=== PATIENT | female | born 1970 ===

== ENCOUNTER 2019-05-08 07:00 | Inpatient (IN) | payer OTHER ==
[~2019-05-08] VITALS: Ht 160 cm; Wt 84.9 kg
[2019-06-08] VITALS (14 sets, daily range): BP systolic 112–140; BP diastolic 62–80
[2019-06-08] MEDS ORDERED: ceFAZolin sod 1 GM in NS 55 ML IVPB ONE (07:00)
[2019-06-08] MEDS ORDERED: Dexamethasone 20mg/5ml IVP ONE (07:00)
[2019-06-08] MEDS ORDERED: fentaNYL 100 mcg/2 mL IV ONE ×2 (08:07→09:55)
[2019-06-08] MEDS ORDERED: Gelfoam Size TOPIC ONE (08:18)
[2019-06-08] MEDS ORDERED: Ropivacaine 5mg/ml Vial 30ml INJ ONE (08:18)
[2019-06-08] MEDS ORDERED: Thrombin 5000 units TOPIC ONE (08:18)
[2019-06-08] MEDS ORDERED: Bacitracin 50000 Units Vial ONE (08:18)
[2019-06-08] MEDS ORDERED: Heparin 5000 units/ml inj ONE (08:18)
[2019-06-08] MEDS ORDERED: AMLODIPINE BESYL5 MG ORAL (08:22)
[2019-06-08] MEDS ORDERED: LOSARTAN-HCTZ1 EAC2 ORAL (08:22)
--- NOTE | 2019-06-08 08:30 | NUR ---
IV LR WAS STARTED BY IFTIKHAR RODRIGUEZ RN. NO S/S OF INFILTRATION.
--- NOTE | 2019-06-08 08:35 | Anethesia Preoperative Eval ---
Anesthesia Pre-op PMH/ROS General Date of Evaluation: Jun 08, 2019 Time of Evaluation: 08:56 Anesthesiologist: Xu ASA Score: ASA 2 Mallampati Score Class I : Soft palate, uvula, fauces, pillars visible Class II: Soft palate, uvula, fauces visible Class III: Soft palate, base of uvula visible Class IV: Only hard plate visible Mallampati Classification: Class II Surgeon: Joey Diagnosis: Back Pain Surgical Procedure: ALIF L4-5, L5-S1 Anesthesia History: none Family History: no anesthesia problems Allergies: Coded Allergies: No Known Allergies (Unverified , 06/05/19) Medications: see eMAR Patient NPO?: Yes Past Medical History Cardiovascular: Reports: HTN Other: obesity - BMI 33 PSxH Narrative: TL, Cholecystectomy Anesthesia Pre-op Phys. Exam Physician Exam Last Vital Signs Date Time Temp Pulse Resp B/P (MAP) Pulse Ox O2 Delivery O2 Flow Rate FiO2 06/08/19 08:17 Room Air Constitutional: NAD Neurologic: CN 2-12 intact Cardiovascular: RRR Respiratory: CTA Gastrointestinal: S/NT/ND Airway Exam Mallampati Score: Class II MO: full ROM: full Teeth: intact Anesthesia Pre-op A/P Labs Urine Test Test 06/08/19 08:00 Urine HCG, Qualitative Pending Risk Assessment & Plan Assessment: ASA 2 Plan: GA, SED, GlideScope Go Status Change Before Surgery: No Pre-Antibiotics Dru Grams Ancef IV Given Within 1 Hr of Incision: Yes Time Given: 09:16 Gomez Barrera MD Jun 08, 2019 08:35
--- NOTE | 2019-06-08 08:36 | Immediate Post-Op Evaluation ---
Immediate Post-Op Evalulation Immediate Post-Op Evalulation Procedure: ALIF L4-5 Date of Evaluation: Jun 08, 2019 Time of Evaluation: 11:48 IV Fluids: 1000 LR Blood Products: 0 Estimated Blood Loss: 100 Urinary Output: 200 Blood Pressure Systolic: 135 Blood Pressure Diastolic: 79 Pulse Rate: 92 Respiratory Rate: 16 O2 Sat by Pulse Oximetry: 99 Temperature (Fahrenheit): 97 Pain Score (1-10): 3 Nausea: No Vomiting: No Complications 0 Patient Status: awake, reacts, patent, extubated, none Hydration Status: adequate Dru Grams Ancef IV Given Within 1 Hr of Incision: Yes Time Given: 09:16 Gomez Barrera MD Jun 08, 2019 08:36
[2019-06-08] MEDS ORDERED: Neostigmine 1mg/ml 10ml Inj ONE (09:00)
[2019-06-08] MEDS ORDERED: Zemuron 50mg/5ml Inj IV ONE (09:00)
[2019-06-08] MEDS ORDERED: LR 1000ml ONE (09:00)
[2019-06-08] MEDS ORDERED: Propofol 1,000mg/ 100ml btl IV ONE (09:00)
--- NOTE | 2019-06-08 09:25 | Pre-Procedure Note/Attestation ---
Pre-Procedure Note/Attestation Complete Prior to Procedure Planned Procedure: not applicable Procedure Narrative: ALIF L4-L5, L5-S1, possible laminotomy Indications for Procedure Pre-Operative Diagnosis: post trauma back pain, radiculopathy Attestation I attest that I discussed the nature of the procedure; its benefits; risks and complications; and alternatives (and the risks and benefits of such alternatives ), prior to the procedure, with the patient (or the patient's legal premium service representative). I attest that, if there was a reasonable possibility of needing a blood transfusion, the patient (or the patient's legal premium service representative) was given the [facility] standardized written summary, pursuant to the [place] Blood Safety Act ([place] Health and Safety Code # 1645, as amended). I attest that I re-evaluated the patient just prior to the surgery and that there has been no change in the patient's H&P, except as documented below: Ricky Reyes MD Jun 08, 2019 09:25
[2019-06-08] MEDS ORDERED: NS Irrig 1000ml IRRIG ONE (09:30)
[2019-06-08] MEDS ORDERED: Lidocaine 1% MPF 10mg/ml 5ml ONE (09:55)
[2019-06-08] MEDS ORDERED: Sodium Chloride 10ml vial INJ ONE (09:55)
[2019-06-08] MEDS ORDERED: Dexamethasone 4mg/ml vial ONE (09:55)
[2019-06-08] MEDS ORDERED: Lidocaine 1% Plain 30 ml INJ ONE ×2 (09:55→10:32)
[2019-06-08] MEDS ORDERED: Glycopyrrolate 0.2mg/ml 1ml Vial ONE (11:00)
--- NOTE | 2019-06-08 11:05 | Brief Operative Note ---
Immediate Post Operative Note Operative Note Pre-op Diagnosis: post trauma back pain, radiculopathy Procedure: ALIF anterior plate L4L5 xray SSEP/EMG mag Post-op Diagnosis: same as pre-op Findings: consistent w/pre-op dx studies Surgeon: Amy Gomez MD Additional Surgeons: Carl SOLIS Anesthesiologist: Holly SOLIS Anesthesia: general Specimen: yes Complications: none Condition: stable Fluids: anesthesia Estimated Blood Loss: volume Drains: none Implant(s) used?: Yes Ricky Reyes MD Jun 08, 2019 11:04
[2019-06-08] MEDS ORDERED: Naloxone 0.4mg/ml Inj IVP PRN (11:15)
--- NOTE | 2019-06-08 12:16 | Diagnostic Imaging Report ---
INDICATION: Pain, intraoperative TECHNIQUE: Intraoperative imaging Fluoroscopy time: 14.8 seconds Total dose: 0.72917 mGym2 Total number of images: 3 COMPARISON: None FINDINGS: Intraoperative imaging documents surgical tools projected anterior to what are presumably the L3-4 disc, L4-5 disc, and L5 vertebral body. Subsequent images demonstrate anterior fusion with placement of a disc spacer at L4-5, hardware appearing well aligned IMPRESSION: Intraoperative imaging, as described
[2019-06-08] MEDS ORDERED: Hydromorphone 0.5mg/0.5ml inj IVP PRN ×2 (12:18→22:00)
[2019-06-08] MEDS ORDERED: DiphenhydrAMINE 50mg/ml Inj ONE (12:22)
[2019-06-08] MEDS ORDERED: Hydromorphone 0.5mg/0.5ml inj ONE (12:22)
[2019-06-08] MEDS ORDERED: DiphenhydrAMINE 50mg/ml Inj IVP SCH ×2 (12:30)
[2019-06-08] MEDS ORDERED: Metoclopramide 10mg/2ml Inj IVP SCH (12:30)
--- NOTE | 2019-06-08 13:00 | NUR ---
NURSE NOTES: Received patient and report from GISELLE Caraballo. Pt is sleeping. She responds to name. Belongings taken by Ja. Pts vital signs on arrival are T: 98.7 BP: 126/65, HR: 77, RR: 20, O2: 99%. surgical dressing intact. Bed is in lowest position, side rails up X2, and call light is within reach. WIll continue to monitor.
[2019-06-08] MEDS: D5 1/2NS 1,000 ML IV SCH ×2 (13:36→21:59)
--- NOTE | 2019-06-08 14:07 | NUR ---
NURSE NOTES: Called and left a message for Dr. Pierre to call me back regarding pain medications. Will await call back.
[2019-06-08] MEDS: Hydromorphone 0.5mg/0.5ml inj IVP PRN ×2 (15:12→18:03)
[2019-06-08] MEDS: ceFAZolin sod 1 GM in D5W 55 ML IV SCH (18:03)
--- NOTE | 2019-06-08 19:00 | Operative Note - Dictated ---
DATE OF OPERATION: 06/08/2019 SURGEON: Ricky Reyes PhD; M.D. ADDITIONAL SURGEON: Dr. Henry, Vascular Surgery. ANESTHESIA: By Dr. Gomez Barrera, general with intubation. ESTIMATED BLOOD LOSS: 50 mL. COMPLICATIONS: None. POSTOPERATIVE CONDITION: Good/stable. PREOPERATIVE DIAGNOSES: Post trauma back pain with radiculopathy, herniated nucleus polyposis, clinical instability. POSTOPERATIVE DIAGNOSES: Post trauma back pain with radiculopathy, herniated nucleus polyposis, clinical instability. OPERATIVE PROCEDURES: L4-L5 diskectomy with removal of posterior disc fragments through anterior approach (no evidence of CSF leak, change in neuromonitoring, EMG, SSEP), interbody reconstruction and fusion, Aero-L prosthesis with placement of osteopromotive material within graft (SILVA-4 analog), anterior internal plate fixation, SSEP/EMG monitoring, intraoperative fluoroscopy interpreted by surgeon, and dissection magnification. DESCRIPTION OF PROCEDURE: The patient was brought to the operating room and in the supine position, general anesthesia with intubation was induced. IV antibiotics IV Decadron were administered 30 minutes prior to incision time. Anterior approach, Dr. Henry, Vascular Surgery, separately dictated. Please see separate report. Identification of midline and the correct level. A lateral plane was determined with a spinal needle placed into the disk space. Fluoroscopic imaging obtained/saved under sterile conditions. After confirmation, needle was removed. Annulotomy performed. Diskectomy to but not through the posterior longitudinal ligament. Midline asymmetric left rent noted with visualization of the dura under high-power magnification. No dural tears or leaks occurred anytime during the procedure. Contiguous disc fragment retrieved without sequelae. After appropriate trial, utilization with monitoring in AP and lateral fluoroscopic planes under sterile conditions, the appropriate interbody device was packed with osteopromotive material SILVA-4 under sterile conditions. Implant inserted under direct observation with fluoroscopic guidance. Fit midline excellent. Interdigitating internal fixation devices deployed into the graft 2 cephalad, 2 caudad under protocol. Locked into position. Implantation device removed. Wound irrigated with antibiotic-containing saline. Negative bleeding noted. Anterior internal plate fixation with the appropriate dimensioned plate with 25 mm titanium screws, two cephalad, two caudad into respectively. The L4 and L5 bodies undertaken and clamped into position. Fluoroscopic guidance undertaken with radiographs obtained and printed in the AP and lateral planes. Position is excellent. Inspection of the wound revealed no obvious excoriation or laceration of vital structures or bleeding. Wound irrigated with antibiotic-containing saline. Please see separate report of Dr. Henry for closure details. Ricky Reyes M.D. DR: LEX JOB#: [id number] CC:
--- NOTE | 2019-06-08 19:30 | NUR ---
NURSE NOTES: Receive a report from GISELLE Starkey. Round is done. Pt is awake and alert, orientation x4. Breathing is even and non labored. No acute distress noted. On O2 2L NC inhalation after surgery. Op site is clear without bleeding signs with gauze and teragerm. Op site pain is mild as 3/10. No chilling or febrile sensation. On NPO except ice chips and po medication. IV fluid hydration on right hand without infiltration. Has not urinated yet since surgery is done. Will continue to monitor.
--- NOTE | 2019-06-08 19:32 | NUR ---
HAND-OFF: Report given to GISELLE Kang. Plan of care endorsed
--- NOTE | 2019-06-08 19:37 | Cardiology Progress Note ---
Objective Last 24 Hour Vital Signs Date Time Temp Pulse Resp B/P (MAP) Pulse Ox O2 Delivery O2 Flow Rate FiO2 06/08/19 15:55 98.1 80 19 119/65 (83) 97 06/08/19 14:54 98.2 76 18 121/64 (83) 97 06/08/19 13:55 98.1 83 18 116/67 (83) 97 06/08/19 13:17 98.7 77 20 126/65 (85) 99 06/08/19 12:40 97.9 71 17 131/71 100 Nasal Cannula 3 06/08/19 12:26 76 17 133/77 100 Nasal Cannula 3 06/08/19 12:22 66 17 122/72 100 Nasal Cannula 3 06/08/19 12:07 68 19 120/62 100 Nasal Cannula 3 06/08/19 11:57 69 19 123/69 100 Nasal Cannula 3 06/08/19 11:47 71 19 120/66 100 Nasal Cannula 3 06/08/19 11:42 69 19 112/66 100 Simple Mask 6 06/08/19 11:37 97.2 91 18 135/70 100 Simple Mask 6 06/08/19 11:34 92 16 99 06/08/19 08:46 98.6 88 20 140/80 (100) 98 06/08/19 08:17 Room Air Laboratory Tests Test 06/08/19 08:00 Urine HCG, Qualitative Negative (NEGATIVE) Beka Ervin MD Jun 08, 2019 19:36
--- NOTE | 2019-06-08 19:45 | Operative Note - Dictated ---
DATE OF OPERATION: 06/08/2019 VASCULAR SURGEON: Nishant Henry M.D. SPINE SURGEON: Ricky Reyes M.D. PREOPERATIVE DIAGNOSIS: Lumbar pain. POSTOPERATIVE DIAGNOSIS: Lumbar pain. PROCEDURE PERFORMED: Anterior retroperitoneal exposure of L4-5 vertebral interspace, left retroperitoneal approach. INDICATIONS: This is a very pleasant woman who is in my office prior to surgery. She has had no prior anterior spine surgery. No history of deep venous thrombosis or bleeding complications. She is mildly overweight. She understands the need for a vertical midline incision, possibly vascular injury, possible need for blood transfusion, deep venous thrombosis prophylaxis were all discussed with her. DESCRIPTION OF FINDINGS: A low vertical midline incision was used. A left retroperitoneal approach was used. There was no peritoneal or ureteral violation. There is no vascular injury. Exposure of L4-5 was obtained by retraction of the left iliac vessels towards the patient's right. Fluoroscopy used to confirm the appropriate level prior to instrumentation. On completion, the peritoneum and ureter were intact. Iliac vessels were intact. Blood loss was less than 100 mL and complications were none. DESCRIPTION OF PROCEDURE: A low vertical midline incision was made infraumbilically. The anterior fascia was incised longitudinally in the midline. A plane was identified posterior to the left rectus abdominis developed posterolaterally towards the patient's left. The retroperitoneal spaces were entered below the arcuate line. Peritoneum and ureter were mobilized towards the patient's right exposing the left common iliac artery and vein. Dissection was carried lateral to the left common iliac artery and vein. Overlying lymphatics were ligated with vascular clips. The iliolumbar vein was identified, ligated with vascular clips, and divided. The L4 segmental artery and vein were also identified, ligated with vascular clips, and divided. This allowed us to retract the left iliac artery and vein towards the patient's right and expose the anterior surface of L4-5. The Omni retractor blade was set in place. Fluoroscopy was used to confirm the appropriate level. Instrumentation performed at L4-5 dictated separately. On completion, retractor was gently removed. The peritoneum and ureter were intact. The iliac vessels were intact. Anterior fascia was then closed with #1 PDS in a running fashion and skin and subcutaneous tissue were closed with 3-0 Vicryl and 4-0 Monocryl running subcuticular closure. Nishant Eliceo Henry DR: BUSTER JOB#: [id number] CC: Ricky Reyes M.D.
[2019-06-08] MEDS ORDERED: Chloraseptic Spray 20mL Bottle ORAL PRN (20:45)
--- NOTE | 2019-06-08 22:00 | NUR ---
NURSE NOTES: Pt did self-void at bed side comodo. Done teaching log roll method in bed. On SCDs bilateral legs for DVT prophylaxis. Will continue to monitor.
[2019-06-08] MEDS: HYDROcodone/Acetamin 10/325 tab ORAL PRN (22:24)
--- NOTE | 2019-06-08 23:45 | Consultation ---
DATE OF CONSULTATION: 06/08/2019 CONSULTING PHYSICIAN: Robin Pierre M.D. REFERRING PHYSICIAN: Ricky Reyes M.D. REASON FOR CONSULTATION: Acute pain consult. HISTORY OF PRESENT ILLNESS: Dear Dr. Ricky Reyes, Thank you kindly for consulting me to evaluate and render an opinion as to how to proceed in the management of the patient's acute postoperative lumbar spine pain after lumbar spine fusion surgery with instrumentation today. The patient is a pleasant 49-year-old obese woman who injured her lumbar spine after a slip and fall accident at a [employer] around 05/20/2018, just over 1 year ago. After failing conservative treatment including physical therapy, acupuncture, and epidural injections, the patient required anterior lumbar interbody fusion surgery today. She complains of significant discomfort and you consulted me to help with her postoperative care and pain control. I saw the patient at the bedside. I performed detailed history and physical examination. Discussed the patient in detail with the recovery room nurse staff along with orthopedic floor nurse RN, Golden. I performed a detailed history and physical examination at the patient's bedside. I reviewed the medical record in detail including multiple preoperative records from Dr. Reyes and Dr. Ervin. Also reviewed multiple diagnostic reports including imaging studies as well as multiple hospital records for today's date of surgery at [facility], 06/08/2019. PAST MEDICAL HISTORY: 1. Acute postoperative lumbar spine pain, status post lumbar spine fusion surgery with instrumentation by Dr. Ricky Reyes May 2019. 2. Slip and fall accident. 3. Obesity. 4. Borderline hypertension. PAST SURGICAL HISTORY: 1. Tubal ligation. 2. Cholecystectomy. ALLERGIES: No known drug allergies. MEDICATIONS: At home, Norvasc and losartan. SOCIAL HISTORY: The patient lives at home with her and 3 children, the oldest of whom is 21 years old who can assist with activities of daily living. The patient denies tobacco or marijuana usage. She drinks alcohol socially about once per month socially. REVIEW OF SYSTEMS: Per Dr. Ervin. FAMILY HISTORY: Obesity, hypertension. PHYSICAL EXAMINATION: VITAL SIGNS: Age 49, height 5 feet 3 inches, weight 186 pounds, body mass index 33. Vital signs, pain level 7/10 on the visual analog pain scale, oxygen saturation 97% on supplemental oxygen, respirations 18, blood pressure 103/75, afebrile, pulse 80. HEENT: Normocephalic, atraumatic. Nasal cannula oxygen in place. No Velarde palsy. No Mercedes syndrome. No nuchal rigidity. CHEST: Clear to auscultation. HEART: Regular rate and rhythm. ABDOMEN: Obese. Painful by incision area with no rebound or guarding appreciated. Mild distention. EXTREMITIES: Moving all extremities x4 with 5/5 dorsiflexion and 5/5 plantar flexion in bilateral lower extremities. NEUROLOGIC: Detailed neurologic exam per Dr. Reyes. BREASTS: Deferred. GENITOURINARY: Deferred. The patient has been voiding urine postoperatively. LABORATORY STUDIES: From 06/01/2019 with INR 0.9. White count 11, hematocrit 42, platelets 230. Urinalysis negative. MRSA screen negative. PTT 31. Sodium 138, potassium 3.8, chloride 102, bicarb 19, calcium 9.9. Total protein 7.8, albumin 4.5. Total bilirubin 0.5, alkaline phosphatase 56, AST 15, ALT 32. White count 11, hematocrit 42, platelets 227. Urinalysis negative. Hepatitis B and C negative. Hemoglobin A1c 6.7. test negative. HIV negative. A 12-lead EKG shows heart rate 67. MRI lumbar spine dated 02/16/2019 shows 6 mm retrolisthesis at L4-L5 with 3 mm diffuse disk bulge at L4-L5 and L5-S1 with mild bilateral foraminal stenosis at both levels. IMPRESSION: 1. Acute postoperative lumbar spine pain, status post lumbar spine fusion surgery with instrumentation by Dr. Ricky Reyes May 2019. 2. Slip and fall accident. 3. Obesity. 4. Borderline hypertension. TREATMENT RECOMMENDATIONS: I advised the following analgesic plan to help with the patient's pain control postoperatively. The patient has tolerated both hydrocodone and temazepam at home and has a supply of these medications. They have been tolerated without any nausea symptoms or adverse side effects. I spoke with the recovery room nurse and the patient has tolerated Dilaudid without any adverse side effects as well. With these 3 effective narcotics well tolerated already, I have simplified her analgesic plan to optimize her pain control and minimize the risk for adverse drug reactions. I have started her on intravenous Dilaudid 0.5 mg every two hours p.r.n. for severe breakthrough pain. I have asked the nurse to dose the patient with 15 mg of temazepam now and then to continue that dosing every 12 hours p.r.n. for spasm or insomnia. I will skip study a normal muscle relaxant since the temazepam has been working well and should have antispasm characteristics. Again, I have ordered Riverton 10/325 one tablet orally every three hours p.r.n. for moderate pain. I have asked the nursing to place Chloraseptic spray at the bedside in case of any sore throat complaints. The patient was just started on antihypertensives in the past month. I have lowered her dose of Norvasc to p.o. 2.5 mg orally b.i.d. with parameters to hold in case of systolic blood pressure less than 120 mmHg. I have also added p.r.n. dose of clonidine 0.1 mg q.8 hours in case of systolic blood pressure readings greater than 160 mmHg. After the ALIF surgical procedure, we will wait for evidence for confucianist of bowel function prior to advancing her diet. She will remain hydrated with intravenous fluids at a rate of 125 mL an hour for now. I will place her on Pepcid 20 mg b.i.d. for GI ulcer prophylaxis. I have also ordered p.r.n. dose of Mylanta 30 mL q.6 hours in case of any GERD symptom exacerbation. I have ordered Zofran 4 mg intravenously every 4 hours p.r.n. for nausea and vomiting. I have ordered Benadryl 25 mg every 6 hours in case of any itching complaints. Dr. Reyes has placed the patient on sequential compression pneumatic devices for DVT prophylaxis. The patient already has a supply of Riverton and Restoril for outpatient usage. She will start with physical therapy training on postop day #1. The patient has already been able to successfully ambulate out of bed to the commode to void urine. Robin Pierre M.D. DR: JOHN PAUL JOB#: [id number] CC:
[2019-06-09 00:11] VITALS: BP 119/64
[2019-06-09] MEDS: ceFAZolin sod 1 GM in D5W 55 ML IV SCH ×2 (02:15→09:25)
[2019-06-09] MEDS: HYDROcodone/Acetamin 10/325 tab ORAL PRN ×4 (02:41→22:43)
[2019-06-09 04:00] VITALS: BP 109/71
[2019-06-09] MEDS: D5 1/2NS 1,000 ML IV SCH ×3 (05:47→20:58)
[2019-06-09] MEDS ORDERED: Acetaminophen (Non formulary) 100 ML IV ONE (07:30)
--- NOTE | 2019-06-09 07:30 | NUR ---
HAND-OFF: Report given to GISELLE Paz. Round is done. Pt is asleep but easily aroused by calling her name. No acute distress noted. Op site is clear. Still gas has not passed yet. Teaching is done to use I/S and encourage to practice q1hr while awake. Pt verbalizes understanding. Will continue to monitor.
--- NOTE | 2019-06-09 07:35 | NUR ---
NURSE NOTES: WALKING ROUNDS DONE WITH OUTGOING RN. PATIENT ASLEEP IN BED BUT EASY TO AROUSE. ABD SURGICAL SITE C/D/I. NO BOWEL SOUNDS PRESENT BUT HAS GURGLING PER PT. QUESTIONS ANSWERED, NEEDS MET AT THIS TIME. DISCUSSED PLAN OF CARE FOR THE DAY. VERBALIZED UNDERSTANDING. BED IN LOW AND LOCKED POSITION. CALL LIGHT WITHIN REACH.
[2019-06-09 08:00] VITALS: BP 106/64
--- NOTE | 2019-06-09 08:50 | NUR ---
P.T Note: P.T evaluation completed and tx initiated per spinal protocol. Please refer to P.T evaluation for current functional status.
--- NOTE | 2019-06-09 09:39 | 48 Hour Post Anesthesia Eval ---
Post Anesthesia Evaluation Procedure: ALIF L4-5 Date of Evaluation: Jun 09, 2019 Time of Evaluation: 09:38 Blood Pressure Systolic: 106 0: 64 Pulse Rate: 59 Respiratory Rate: 17 Temperature (Fahrenheit): 97.6 O2 Sat by Pulse Oximetry: 97 Airway: patent Nausea: No Vomiting: No Pain Intensity: 2 Hydration Status: adequate Cardiopulmonary Status: Stable Mental Status/LOC: patient returned to baseline Follow-up Care/Observations: 0 Post-Anesthesia Complications: 0 Follow-up care needed: N/A Gomez Barrera MD Jun 09, 2019 09:39
--- NOTE | 2019-06-09 10:01 | NUR ---
CASE MANAGEMENT:REVIEW 49 YR OLD FEMALE HERE FOR ELECTIVE SURGERY SI: POST TRAUMA BACK PAIN. RADICULOPATHY 97.2 91 18 135/70 99% ON RA IS: TO SURGERY FOR: ALIF ANTERIOR PLATE L4L5 IVF@125/HR : TO MED/SURG 3 EAST POST OP INTERQUAL CRITERIA MET
[2019-06-09 12:00] VITALS: BP 124/69
--- NOTE | 2019-06-09 15:50 | NUR ---
NURSE NOTES: PATIENT REMAINS STABLE. UP AMBULATING AROUND NURSING UNIT WITH STANDBY ASSIST. GAIT STEADY. NO FLATUS OF YET. VSS. AFEBRILE. PAIN MANAGED WITH NORCO 10 MG PO.
[2019-06-09 16:00] VITALS: BP 119/67
--- NOTE | 2019-06-09 16:27 | Cardiology Progress Note ---
Assessment/Plan Assessment/Plan radiculopathy htn post op pain ambulating no faltus nor bp bp lower than normal keep off bp meds for now may need higer ivf rate await resolution of ileus Subjective Cardiovascular: Denies: chest pain, lightheadedness, palpitations Respiratory: Denies: shortness of breath Gastrointestinal/Abdominal: Reports: abdomen distended; Denies: abdominal pain Genitourinary: Denies: burning Objective Last 24 Hour Vital Signs Date Time Temp Pulse Resp B/P (MAP) Pulse Ox O2 Delivery O2 Flow Rate FiO2 06/09/19 12:00 97.3 60 16 124/69 (87) 98 06/09/19 09:39 59 17 97 06/09/19 09:28 97.6 06/09/19 09:00 Room Air 06/09/19 08:58 59 106/64 06/09/19 08:00 97.6 59 17 106/64 (78) 97 06/09/19 04:00 98.8 78 17 109/71 (84) 97 06/09/19 00:11 98.6 82 18 119/64 (82) 97 06/08/19 21:00 Nasal Cannula 2.0 06/08/19 20:00 98.9 75 16 113/68 (83) 97 General Appearance: no apparent distress, alert Cardiovascular: normal rate Respiratory/Chest: lungs clear Abdomen: normal bowel sounds, non tender, soft Intake and Output 06/08/19 06/09/19 19:00 07:00 Intake Total 1225 ml 1500 ml Output Total 100 ml Balance 1125 ml 1500 ml Intake IV Total 1225 ml 1500 ml Output Estimated Blood Loss 100 ml Beka Ervin MD Jun 09, 2019 16:27
--- NOTE | 2019-06-09 17:45 | Progress Note ---
DATE: 06/09/2019 ACUTE PAIN MANAGEMENT PHYSICIAN PROGRESS NOTE Medication administration record reviewed. Medications include Tylenol, Mylanta, Norvasc, Catapres, Benadryl, Pepcid, White Pigeon, Dilaudid, Narcan, Zofran, Chloraseptic spray, and Restoril. LABORATORY STUDIES: No interval laboratory studies. OBJECTIVE: VITAL SIGNS: Afebrile, pulse 75, respirations 16, blood pressure 119/67, and oxygen saturation 100%. I spent over 60 minutes in consultation today. I saw the patient at the bedside with the nurse RN, Brandi. The patient is doing very well after her anterior lumbar interbody fusion surgery procedure. She does have positive bowel sounds, but it is not yet passing flatus. We will continue her on IV fluids for now for intravascular rehydration. Her blood pressure is manageable and she denies any shortness of breath or chest pain. The patient has no nausea symptoms. She has been tolerating the oral White Pigeon along with breakthrough Dilaudid injections. The oral White Pigeon and IV Dilaudid have been working well. We will continue this dosing as listed. The patient has been ambulating very well greater than 100 feet already. She moves in and out of bed independently and has been voiding urine well. We will continue to wait for improvement in her bowel function after ALIF procedure before advancing her diet. She denies significant abdominal bloating, but we would expect to have some abdominal bloating until she passes flatus. The patient already has an outpatient prescriptions for Restoril and White Pigeon for home usage. We will continue supportive care for now while we await further recovery from her spinal fusion procedure. The patient is in good spirits. She denies any anxiety or depressive symptoms at this time and is in agreement with the proposed plan. Robin Pierre M.D. DR: CHRISTIANO JOB#: [id number] CC:
--- NOTE | 2019-06-09 19:39 | NUR ---
HAND-OFF: Report given to CHANCE SPENCE RN.
[2019-06-09 20:00] VITALS: BP 131/65
--- NOTE | 2019-06-09 20:00 | NUR ---
NURSE NOTES: Received patient awake in bed, family at the bedside, able to verbalize needs. No c/o of pain at this time, c/o mild nausea, no s/s of acute distress. Surgical dressing dry and intact, asymptomatic. IV access asymptomatic, running IVF at 125ml/hr. Fall and safety precautions taken. Will administer pain and nausea medication per MD order.
[2019-06-10] VITALS: BP 118/57
[2019-06-10 04:00] VITALS: BP 127/61
[2019-06-10] MEDS: D5 1/2NS 1,000 ML IV SCH ×2 (05:02→14:12)
--- NOTE | 2019-06-10 07:05 | NUR ---
NURSE NOTES: Passing flatus and 1 stool. Advanced diet to Clear Liquids for breakfast.
[2019-06-10] MEDS: HYDROcodone/Acetamin 10/325 tab ORAL PRN ×2 (07:15→14:12)
--- NOTE | 2019-06-10 07:19 | NUR ---
NURSE NOTES:BEDSIDE ROUNDS WITH NIGHT RN(CHANCE),PT.SITTING IN CHAIR C/O PAIN 03/30.MEDICATED BY NIGHT RN.IV SITE PATENT.HAD BM.TO START IN CLEAR LIQUID DIET.PLAN OF CARE DISCUSSED AND WITH UNDERSTANDING.
--- NOTE | 2019-06-10 07:19 | NUR ---
HAND-OFF: Report given to GISELLE Chavez.
[2019-06-10 08:00] VITALS: BP 103/54
[2019-06-10] MEDS ORDERED: D5 1/2NS 1000ml IV ONE ×2 (09:20→09:21)
[2019-06-10 12:00] VITALS: BP 117/67
--- NOTE | 2019-06-10 14:37 | NUR ---
NURSE NOTES:SEEN BY DR. ACOSTA,UPDATED RE:PTS.STATUS,PT.HAD BM,AMBULATING.D/C ORDERS CARRIED OUT,DR. ACOSTA OKAYED FOR HOME MEDS TO CONTINUE.
[2019-06-10 16:00] VITALS: BP 111/63
[2019-06-10 18:00] VITALS: BP 111/63
--- NOTE | 2019-06-10 18:00 | Progress Note ---
DATE: 06/10/2019 ACUTE PAIN MANAGEMENT PHYSICIAN PROGRESS NOTE Medication administration record reviewed. Medications include Restoril, Chloraseptic spray, Zofran, Narcan, Dilaudid, Richards, Pepcid, Benadryl, Catapres, Norvasc, Mylanta, and Tylenol. LABORATORY STUDIES: No interval laboratory studies. OBJECTIVE: Vital signs within normal limits. Afebrile, pulse 72, respirations 18, and blood pressure 117/67. Oxygen saturation 97% on room air. I spent over 60 minutes in consultation today. The patient continues to ambulate aggressively and overnight, the patient had a large bowel movement. The patient's pain has been well tolerated using primarily oral Richards, which she has tolerated without any nausea or other adverse side effects. She has not required parental Dilaudid for quite some time. She tolerated clear liquid diet for breakfast, and we will advance her to regular promptly with expectation to discharge to home later today. The patient already has a good supply of Richards and Restoril for home usage. The patient is quite independent and has been moving in and out of bed with relative ease and independence. She denied any shortness of breath or chest pain. With the normal vital signs, I concur with the surgeon, Dr. Reyes we will discharge her home later today. The patient will follow up with Dr. Ricky Reyes in the outpatient surgical clinic in the near future. Robin Pierre M.D. DR: LAVON JOB#: [id number] CC:
--- NOTE | 2019-06-10 18:36 | NUR ---
NURSE NOTES:D/C INSTRUCTIONS INCLUDING BELONGINGS,RAISE TOILET SEAT PROVIDED AND WITH UNDERSTANDING.AWAITING FOR PICKUP BY .
--- NOTE | 2019-06-10 19:10 | Cardiology Progress Note ---
Assessment/Plan Assessment/Plan radiculopathy htn post op pain ambulating had flatus and bm goign home today bp lower than normal keep off bp meds for now Subjective Cardiovascular: Denies: chest pain, lightheadedness, palpitations Respiratory: Denies: shortness of breath Gastrointestinal/Abdominal: Reports: abdominal pain; Denies: constipated, nausea, vomiting Genitourinary: Denies: burning Objective Last 24 Hour Vital Signs Date Time Temp Pulse Resp B/P (MAP) Pulse Ox O2 Delivery O2 Flow Rate FiO2 06/10/19 18:00 72 111/63 06/10/19 16:00 98.6 72 18 111/63 (79) 96 06/10/19 12:00 98.6 72 18 117/67 (84) 97 06/10/19 08:26 71 103/54 06/10/19 08:00 98.6 71 18 103/54 (70) 96 06/10/19 07:15 Room Air 06/10/19 04:00 98.3 69 17 127/61 (83) 97 06/10/19 00:00 97.9 66 18 118/57 (77) 95 06/09/19 23:13 97.5 06/09/19 21:23 Room Air 06/09/19 20:00 97.5 62 18 131/65 (87) 100 General Appearance: no apparent distress, alert Neck: supple Cardiovascular: normal rate Respiratory/Chest: lungs clear Abdomen: normal bowel sounds, soft, other - dressing clean and dry Extremities: no swelling Intake and Output 06/09/19 06/10/19 18:59 06:59 Intake Total 1180 ml 1350 ml Balance 1180 ml 1350 ml Intake Oral 100 ml IV Total 1180 ml 1250 ml # Voids 1 Beka Ervin MD Jun 10, 2019 19:10
--- NOTE | 2019-06-10 19:15 | NUR ---
HAND-OFF: Report given to MARIELA DESAI.PT. SITTING IN CHAIR STABLE.
--- NOTE | 2019-06-10 19:20 | NUR ---
NURSE NOTES: Received report from GISELLE Chavez. Patient alert, awake sitting in chair, no distress noted. Abdominal dressing dry and intact. Patient awaiting to go home. Instructed to call when arrives in order to DC saline lock. Per AM shift report, all discharge teaching has been done, documented and signed.
--- NOTE | 2019-06-10 20:05 | NUR ---
NURSE NOTES: Patient's here to pick her up. Saline lock DC'd. No distress noted. Patient has raised toilet seat, all instructions, IS. Wheeled down to lobby, family with her, went home via private car.
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
== END 2019-06-10 20:20 | disposition home or self-care (01) | DRG 460 ==
LOC: SDSOVERFLO 06-08 07:44 → 3E 06-08 12:57
PROC: 0SG00A0 Fusion of Lumbar Vertebral Joint with Interbody Fusion Device, Anterior Approach, Anterior Column, Open Approach (ICD-10-PCS; principal; 2019-06-08 09:00)
PROC: 0SB20ZZ Excision of Lumbar Vertebral Disc, Open Approach (ICD-10-PCS; principal; 2019-06-08 09:00)
DX: M51.16 Intervertebral disc disorders with radiculopathy, lumbar region (principal); I10 Essential (primary) hypertension; W01.0XXS Fall on same level from slipping, tripping and stumbling without subsequent striking against object, sequela; E66.9 Obesity, unspecified; Z68.33 Body mass index [BMI] 33.0-33.9, adult
CPT/HCPCS: 36415; 72020; 76000; 81025; 86850; 86900; 86901; 87081; 94003; 94150; J2405; J2710